=== PATIENT | female | born 1980 | race Asian ===

== ENCOUNTER 2017-04-22 12:37 | Emergency (ER) | payer OTHER ==
[2017-04-22 13:28] VITALS: BP 130/71; PULSE 86; TEMP 98.5; BMI 24.5
[2017-04-22] MEDS ORDERED: ACETAMINOPHEN 325 MG TABLET (FP) PO ONE (14:31)
[2017-04-22] MEDS ORDERED: ACETAMINOPHEN 325 MG TABLET (FP) ONE (14:32)
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
== END 2017-04-22 16:07 | disposition home or self-care (01) ==
LOC: JERFT 12:37 → JER 12:37 → JERFT 16:07
DX: S13.4XXA Sprain of ligaments of cervical spine, initial encounter (principal); V43.62XA Car passenger injured in collision with other type car in traffic accident, initial encounter; Y92.488 Other paved roadways as the place of occurrence of the external cause; Y93.89 Activity, other specified; Y99.9 Unspecified external cause status; E03.9 Hypothyroidism, unspecified
CPT/HCPCS: 99281-25

== ENCOUNTER → 2022-03-27 | Day surgery (SDC) | payer OTHER ==
[~2022-03-27] MED LIST: IRON SUCROSE INJECTION 200 MG in SODIUM CHLORIDE 90 ML IVPB ONE
[2022-03-27 19:09] VITALS: BP 88/58; PULSE 72; RESP 18; TEMP 98.6
== END | disposition home or self-care (01) ==
LOC: JONCNONCHE 09:38
PROVIDERS: ATTEND Internal Medicine Hematology & Oncology
DX: D50.9 Iron deficiency anemia, unspecified (principal)
CPT/HCPCS: 96365; J1756

== ENCOUNTER 2022-04-03 17:05 | Day surgery (SDC) | payer OTHER ==
[~2022-04-03 17:05] MED LIST changes: +IRON SUCROSE INJECTION 200 MG in SODIUM CHLORIDE 100 ML IVPB ONE; -IRON SUCROSE INJECTION 200 MG in SODIUM CHLORIDE 90 ML IVPB ONE
[2022-04-03 18:09] VITALS: BP 98/58; PULSE 72; RESP 18; TEMP 98.2
== END 2022-04-03 18:20 | disposition home or self-care (01) ==
LOC: JONCNONCHE 17:05 → J7W 17:07 → JONCNONCHE 18:20
PROVIDERS: ATTEND Internal Medicine Hematology & Oncology
PROC: 3E033GC Introduction of Other Therapeutic Substance into Peripheral Vein, Percutaneous Approach (ICD-10-PCS; principal; 2022-04-03)
DX: D50.9 Iron deficiency anemia, unspecified (principal)
CPT/HCPCS: 96365; J1756

== ENCOUNTER 2022-04-10 07:51 | Day surgery (SDC) | payer OTHER ==
[2022-04-10] MEDS ORDERED: IRON SUCROSE INJECTION 200 MG in SODIUM CHLORIDE 100 ML IVPB ONE (10:00)
[2022-04-10 17:41] VITALS: BP 100/59; PULSE 68; RESP 18; TEMP 97.7
== END 2022-04-10 18:04 | disposition home or self-care (01) ==
LOC: JONCCHEMO 07:51
PROVIDERS: ATTEND Internal Medicine Hematology & Oncology
PROC: 3E033GC Introduction of Other Therapeutic Substance into Peripheral Vein, Percutaneous Approach (ICD-10-PCS; principal; 2022-04-10)
DX: D50.9 Iron deficiency anemia, unspecified (principal)
CPT/HCPCS: 96365; J1756

== ENCOUNTER 2022-04-18 06:54 | Day surgery (SDC) | payer OTHER ==
[2022-04-18] MEDS ORDERED: IRON SUCROSE INJECTION 200 MG in SODIUM CHLORIDE 100 ML IVPB ONE (17:30)
[2022-04-18 17:35] VITALS: TEMP 99
[2022-04-18 18:22] VITALS: BP 97/58; PULSE 81; RESP 20
== END 2022-04-18 18:23 | disposition home or self-care (01) ==
LOC: JONCNONCHE 06:54 → J7W 17:21 → JONCNONCHE 18:23
PROVIDERS: ATTEND Internal Medicine Hematology & Oncology
PROC: 3E033GC Introduction of Other Therapeutic Substance into Peripheral Vein, Percutaneous Approach (ICD-10-PCS; principal; 2022-04-18)
DX: D50.9 Iron deficiency anemia, unspecified (principal)
CPT/HCPCS: 96365; J1756